=== PATIENT | male | born 2000 | race Two or more races ===

== ENCOUNTER 2022-01-21 03:37 | Inpatient (IN) | payer MEDICAID ==
[~2022-01-21] VITALS: Ht 175.3 cm; Wt 97.8 kg
[2022-01-21 04:35] LABS: BASOPHILS % (AUTO) 0.5 % (0.0-2.0); EOSINOPHILS % (AUTO) 0.8 % (1.0-6.0); HEMATOCRIT 40.3 % (41-53); HEMOGLOBIN 13.7 g/dL (13.5-17.5); LYMPHOCYTES # (AUTO) 2.9 K/uL (1.0-4.8); LYMPHOCYTES % (AUTO) 25.9 % (22.0-44.0); MEAN CORPUSCULAR HEMOGLOBIN 29.9 pg (26.0-34.0); MEAN CORPUSCULAR VOLUME 88 fL (80-100); MONOCYTES # (AUTO) 0.8 K/uL (0.1-1.0); NEUTROPHILS # (AUTO) 7.3 K/uL (1.8-7.7); NEUTROPHILS % (AUTO) 65.8 % (40.0-70.0); PLATELET COUNT (AUTO) 254 K/uL (150-450); RED BLOOD CELL COUNT(AUTO) 4.59 MIL/uL (4.50-5.90)
[2022-01-21 04:42] LABS: AMPHET/METH SCREEN,URINE NEGATIVE (NEGATIVE); BARBITURATE SCREEN, URINE NEGATIVE (NEGATIVE); BENZODIAZEPINES SCREEN,URINE NEGATIVE (NEGATIVE); CANNABINOID SCREEN,URINE POSITIVE (NEGATIVE); COCAINE SCREEN,URINE NEGATIVE (NEGATIVE); METHADONE SCREEN, URINE NEGATIVE (NEGATIVE); OPIATE SCREEN,URINE NEGATIVE (NEGATIVE)
[2022-01-21 04:44] LABS: ANION GAP 6 mmol/L (8-16); CALCIUM, TOTAL 9.1 mg/dL (8.8-10.5); CARBON DIOXIDE 30 mmol/L (22-29); CHLORIDE 103 mmol/L (98-107); GLOMERULAR FILTR. RATE CALC > 60 mL/min (>60); GLUCOSE,RANDOM 135 mg/dL (70-110); POTASSIUM 3.9 mmol/L (3.5-5.1); SODIUM SERUM 139 mmol/L (136-145); UREA NITROGEN, BLOOD 16 mg/dL (7-18)
[2022-01-21 04:44] LABS: PHENCYCLIDINE SCREEN,URINE NEGATIVE (NEGATIVE)
[2022-01-21 04:50] LABS: ALANINE AMINOTRANSFERASE 38 U/L (12-78); ALBUMIN 3.8 g/dL (3.4-5.0); ALKALINE PHOSPHATASE 87 U/L (46-116); ASPARTATE AMINOTRANSFERASE 11 U/L (15-37); BILIRUBIN,TOTAL 0.4 mg/dL (0.1-1.0); TOTAL PROTEIN, SERUM 7.7 g/dL (6.4-8.2)
[2022-01-21 05:40] LABS: COVID AG,FIA SOURCE NASAL SWAB
[2022-01-21 07:14] LABS: APPEARANCE,URINE TURBID (CLEAR); BILIRUBIN,URINE NEGATIVE (NEGATIVE); GLUCOSE, URINE (UA) NEGATIVE (NEGATIVE); KETONES,URINE NEGATIVE (NEGATIVE); LEUKOCYTE ESTERASE ,URINE SMALL (NEGATIVE); NITRATE,URINE NEGATIVE (NEGATIVE); OCCULT BLOOD,URINE NEGATIVE (NEGATIVE); PROTEIN,URINE TRACE mg/dL (NEGATIVE); SPECIFIC GRAVITIY, URINE 1.032 (1.003-1.030)
[2022-01-21 07:57] LABS: AMORPHOUS SEDIMENT,UR Moderate /LPF (None Seen); BACTERIA,URINE None Seen /HPF (None Seen); RBC,URINE None Seen /HPF (0-2); SQUAMOUS EPITHELIAL CELL,UR Few /LPF (None Seen); WBC,URINE 0-2 /HPF (0-5)
[2022-01-21 09:42] VITALS: BP 136/87
[2022-01-21] MEDS ORDERED: NICOTINE 14 MG/24 HOUR PATCH TD PRN (14:45)
[2022-01-21] MEDS ORDERED: MAG HYDROX/AL HYDROX/SIMETH ES 30 ML SUSPENSION UDCUP PO PRN (14:45)
[2022-01-21] MEDS ORDERED: ONDANSETRON HCL 4 MG TABLET PO PRN (14:45)
[2022-01-21] MEDS ORDERED: GuaiFENesin/D-METHORPHAN [SUGAR-FREE] 200-20MG/10 ML SYRUP UDCUP PO PRN (14:45)
[2022-01-21] MEDS ORDERED: CloNIDine HCL 0.1 MG TABLET PO PRN (14:45)
[2022-01-21] MEDS ORDERED: ALBUTEROL SULFATE HFA 90 MCG/PUFF 8 GM INHALER IH PRN (14:45)
[2022-01-21] MEDS ORDERED: PETROLATUM,WHITE 28 GM JELLY TP PRN (14:45)
[2022-01-21] MEDS ORDERED: ACETAMINOPHEN 325 MG TABLET PO PRN (14:45)
[2022-01-21] MEDS ORDERED: MAGNESIUM HYDROXIDE SUSPENSION 30 ML UDCUP PO PRN (14:45)
[2022-01-21] MEDS ORDERED: DOCUSATE SODIUM 100 MG CAPSULE PO PRN (14:45)
[2022-01-21] MEDS ORDERED: LOPERAMIDE HCL 2 MG CAPSULE PO PRN (14:45)
[2022-01-21] MEDS ORDERED: IBUPROFEN 400 MG TABLET PO PRN (14:45)
[2022-01-21] MEDS: SERTRALINE HCL 50 MG TABLET PO SCH (16:49)
[2022-01-22 08:11] VITALS: BP 145/88
[2022-01-22] MEDS: SERTRALINE HCL 50 MG TABLET PO SCH ×3 (08:48→12:38)
[2022-01-22 09:38] LABS: CHOL/HDL RATIO 3.7 (4.2-7.3)
[2022-01-22 09:46] LABS: HEMOGLOBIN A1C 5.6 % (3.8-5.6)
[2022-01-22 16:04] VITALS: BP 121/71
[2022-01-22] MEDS: ZOLPIDEM TARTRATE 10 MG TABLET PO PRN (21:16)
[2022-01-22] MEDS: LORazepam 2 MG TABLET PO PRN (23:28)
[2022-01-22] MEDS: HALOPERIDOL 5 MG TABLET PO PRN (23:28)
[2022-01-23 08:00] VITALS: BP 126/98
[2022-01-23] MEDS: SERTRALINE HCL 50 MG TABLET PO SCH ×2 (09:00→10:04)
[2022-01-23 16:22] VITALS: BP 106/63
[2022-01-23] MEDS: ZOLPIDEM TARTRATE 10 MG TABLET PO PRN (21:08)
[2022-01-23] MEDS: LORazepam 2 MG TABLET PO PRN (22:53)
[2022-01-24 08:00] VITALS: BP 116/83
[2022-01-24] MEDS: SERTRALINE HCL 50 MG TABLET PO SCH (08:54)
[2022-01-24] MEDS: LORazepam 2 MG TABLET PO PRN ×2 (14:27→20:30)
[2022-01-24] MEDS: HALOPERIDOL 5 MG TABLET PO PRN (14:28)
[2022-01-24 16:00] VITALS: BP 147/89
[2022-01-24] MEDS: ZOLPIDEM TARTRATE 10 MG TABLET PO PRN (21:30)
[2022-01-24] MEDS ORDERED: LORazepam 2 MG/ML VIAL ONE (22:40)
[2022-01-24] MEDS ORDERED: HALOPERIDOL LACTATE 5 MG/ML VIAL ONE (22:40)
[2022-01-24] MEDS ORDERED: DiphenhydrAMINE HCL 50 MG/ML VIAL ONE (22:40)
[2022-01-24] MEDS ORDERED: HALOPERIDOL LACTATE 5 MG/ML VIAL IM ONE (22:45)
[2022-01-24] MEDS ORDERED: LORazepam 2 MG/ML VIAL IM ONE (22:45)
[2022-01-24] MEDS ORDERED: DiphenhydrAMINE HCL 50 MG/ML VIAL IM ONE (22:45)
[2022-01-25 08:16] VITALS: BP 101/55
[2022-01-25] MEDS: SERTRALINE HCL 50 MG TABLET PO SCH (09:00)
[2022-01-25] MEDS: HALOPERIDOL 5 MG TABLET PO PRN ×2 (13:26→20:19)
[2022-01-25] MEDS: LORazepam 2 MG TABLET PO PRN ×2 (13:26→20:19)
[2022-01-26] MEDS: SERTRALINE HCL 50 MG TABLET PO SCH (08:12)
[2022-01-26] MEDS: HALOPERIDOL 5 MG TABLET PO PRN ×3 (08:12→20:19)
[2022-01-26] MEDS: LORazepam 2 MG TABLET PO PRN ×3 (08:12→20:59)
[2022-01-26 08:19] VITALS: BP 138/89
[2022-01-26 16:22] VITALS: BP 123/76
[2022-01-26] MEDS: ZOLPIDEM TARTRATE 10 MG TABLET PO PRN (20:19)
[2022-01-27] MEDS: LORazepam 2 MG TABLET PO PRN ×3 (01:05→15:42)
[2022-01-27] MEDS: HALOPERIDOL 5 MG TABLET PO PRN ×4 (01:06→20:45)
[2022-01-27 06:16] LABS: COVID AG,FIA SOURCE NASAL SWAB
[2022-01-27 06:22] LABS: BASOPHILS % (AUTO) 0.1 % (0.0-2.0); EOSINOPHILS % (AUTO) 1.3 % (1.0-6.0); HEMOGLOBIN 14.9 g/dL (13.5-17.5); LYMPHOCYTES # (AUTO) 3.5 K/uL (1.0-4.8); LYMPHOCYTES % (AUTO) 34.9 % (22.0-44.0); MEAN CORPUSCULAR HEMOGLOBIN 29.7 pg (26.0-34.0); MEAN CORPUSCULAR HGB CONC 33.8 G/dL (31.0-37.0); MEAN CORPUSCULAR VOLUME 88 fL (80-100); MONOCYTES # (AUTO) 0.6 K/uL (0.1-1.0); MONOCYTES % (AUTO) 6.2 % (2.0-9.0); NEUTROPHILS # (AUTO) 5.7 K/uL (1.8-7.7); NEUTROPHILS % (AUTO) 57.5 % (40.0-70.0); PLATELET COUNT (AUTO) 231 K/uL (150-450); RED BLOOD CELL COUNT(AUTO) 5.01 MIL/uL (4.50-5.90); RED CELL DISTRIBUTION WIDTH 12.9 % (11.5-14.5)
[2022-01-27 08:21] VITALS: BP 104/56
[2022-01-27] MEDS: SERTRALINE HCL 50 MG TABLET PO SCH (08:53)
[2022-01-27 16:18] VITALS: BP 130/80
[2022-01-27] MEDS: ZOLPIDEM TARTRATE 10 MG TABLET PO PRN (20:12)
[2022-01-28] MEDS: HALOPERIDOL 5 MG TABLET PO PRN ×2 (08:06→18:45)
[2022-01-28] MEDS: SERTRALINE HCL 50 MG TABLET PO SCH (08:06)
[2022-01-28 08:20] VITALS: BP 102/63
[2022-01-28] MEDS: LORazepam 2 MG TABLET PO PRN ×2 (10:00→18:45)
[2022-01-28 16:09] VITALS: BP 123/72
[2022-01-28] MEDS: ZOLPIDEM TARTRATE 10 MG TABLET PO PRN (20:30)
[2022-01-29 08:00] VITALS: BP 108/54
[2022-01-29] MEDS: SERTRALINE HCL 50 MG TABLET PO SCH (09:09)
[2022-01-29] MEDS: LORazepam 2 MG TABLET PO PRN (09:09)
[2022-01-29] MEDS: HALOPERIDOL 5 MG TABLET PO PRN (09:09)
[2022-01-29] MEDS ORDERED: SERT-439 PO (12:54)
== END 2022-01-29 13:00 | disposition home or self-care (01) | DRG 751 ==
LOC: EMS 03:38 → 3EC 07:00
PROVIDERS: ADMIT Psychiatry & Neurology Child & Adolescent Psychiatry; ATTEND Psychiatry & Neurology Child & Adolescent Psychiatry
DX: F33.2 Major depressive disorder, recurrent severe without psychotic features (principal); R45.851 Suicidal ideations; F10.10 Alcohol abuse, uncomplicated; Z20.822 Contact with and (suspected) exposure to COVID-19; F19.10 Other psychoactive substance abuse, uncomplicated; D72.829 Elevated white blood cell count, unspecified; R73.9 Hyperglycemia, unspecified; F12.10 Cannabis abuse, uncomplicated; Z59.00 Homelessness unspecified; Z71.41 Alcohol abuse counseling and surveillance of alcoholic
CPT/HCPCS: 80053; 80061; 81001; 83036; 85025; 87081; 99285; G0480; J1200; J1630; J2060

== ENCOUNTER 2022-01-30 02:35 | Emergency (ER) | payer MEDICAID, OTHER ==
[~2022-01-30] VITALS: Ht 177.8 cm; Wt 90.9 kg
[~2022-01-30 02:35] MED LIST: SERT-439 PO
[2022-01-30 04:00] VITALS: BP 114/74
== END 2022-01-30 04:01 | disposition home or self-care (01) ==
LOC: EMS 02:43
DX: R07.9 Chest pain, unspecified (principal); F12.90 Cannabis use, unspecified, uncomplicated; F15.90 Other stimulant use, unspecified, uncomplicated
CPT/HCPCS: 71045; 93005; 99283

== ENCOUNTER 2022-01-30 07:34 | Inpatient (IN) | payer MEDICAID ==
[~2022-01-30] VITALS: Ht 182.9 cm; Wt 98.0 kg
[2022-01-30 08:16] LABS: BASOPHILS % (AUTO) 0.7 % (0.0-2.0); EOSINOPHILS % (AUTO) 0.7 % (1.0-6.0); HEMATOCRIT 42.3 % (41-53); HEMOGLOBIN 14.4 g/dL (13.5-17.5); LYMPHOCYTES # (AUTO) 3.8 K/uL (1.0-4.8); LYMPHOCYTES % (AUTO) 30.7 % (22.0-44.0); MEAN CORPUSCULAR HEMOGLOBIN 29.9 pg (26.0-34.0); MEAN CORPUSCULAR VOLUME 88 fL (80-100); MONOCYTES # (AUTO) 0.9 K/uL (0.1-1.0); MONOCYTES % (AUTO) 7.6 % (2.0-9.0); NEUTROPHILS # (AUTO) 7.5 K/uL (1.8-7.7); NEUTROPHILS % (AUTO) 60.3 % (40.0-70.0); PLATELET COUNT (AUTO) 259 K/uL (150-450); RED BLOOD CELL COUNT(AUTO) 4.81 MIL/uL (4.50-5.90); RED CELL DISTRIBUTION WIDTH 13.1 % (11.5-14.5)
[2022-01-30 08:22] LABS: AMPHET/METH SCREEN,URINE NEGATIVE (NEGATIVE); BARBITURATE SCREEN, URINE NEGATIVE (NEGATIVE); BENZODIAZEPINES SCREEN,URINE NEGATIVE (NEGATIVE); CANNABINOID SCREEN,URINE POSITIVE (NEGATIVE); COCAINE SCREEN,URINE NEGATIVE (NEGATIVE); METHADONE SCREEN, URINE NEGATIVE (NEGATIVE); OPIATE SCREEN,URINE NEGATIVE (NEGATIVE)
[2022-01-30 08:24] LABS: ANION GAP 6 mmol/L (8-16); CALCIUM, TOTAL 9.3 mg/dL (8.8-10.5); CARBON DIOXIDE 27 mmol/L (22-29); CHLORIDE 103 mmol/L (98-107); CREATININE 0.78 mg/dL (0.60-1.30); GLOMERULAR FILTR. RATE CALC > 60 mL/min (>60); GLUCOSE,RANDOM 103 mg/dL (70-110); PHENCYCLIDINE SCREEN,URINE NEGATIVE (NEGATIVE); POTASSIUM 3.9 mmol/L (3.5-5.1); SODIUM SERUM 136 mmol/L (136-145); UREA NITROGEN, BLOOD 12 mg/dL (7-18)
[2022-01-30 08:30] LABS: ALANINE AMINOTRANSFERASE 41 U/L (12-78); ALBUMIN 4.1 g/dL (3.4-5.0); ALKALINE PHOSPHATASE 106 U/L (46-116); ASPARTATE AMINOTRANSFERASE 13 U/L (15-37); BILIRUBIN,TOTAL 0.3 mg/dL (0.1-1.0); TOTAL PROTEIN, SERUM 7.6 g/dL (6.4-8.2)
[2022-01-30 12:18] LABS: APPEARANCE,URINE CLEAR (CLEAR); BILIRUBIN,URINE NEGATIVE (NEGATIVE); GLUCOSE, URINE (UA) NEGATIVE (NEGATIVE); KETONES,URINE NEGATIVE (NEGATIVE); LEUKOCYTE ESTERASE ,URINE TRACE (NEGATIVE); NITRATE,URINE NEGATIVE (NEGATIVE); OCCULT BLOOD,URINE NEGATIVE (NEGATIVE); PROTEIN,URINE TRACE mg/dL (NEGATIVE); SPECIFIC GRAVITIY, URINE 1.027 (1.003-1.030); UROBILINOGEN,URINE <=1.0 mg/dL (<=1.0)
[2022-01-30 12:22] LABS: BACTERIA,URINE None Seen /HPF (None Seen); RBC,URINE None Seen /HPF (0-2); WBC,URINE 0-2 /HPF (0-5)
[2022-01-30 12:40] LABS: COVID AG,FIA SOURCE NASAL SWAB
[2022-01-30 15:44] VITALS: BP 137/72
[2022-01-30 16:40] VITALS: BP 127/70
[2022-01-30] MEDS: ZOLPIDEM TARTRATE 10 MG TABLET PO PRN (20:49)
[2022-01-30] MEDS: LORazepam 2 MG TABLET PO PRN (23:46)
[2022-01-30] MEDS: OLANZapine 5 MG TABLET PO PRN (23:46)
[2022-01-31] MEDS ORDERED: DOCUSATE SODIUM 100 MG CAPSULE PO PRN (07:45)
[2022-01-31] MEDS ORDERED: PETROLATUM,WHITE 28 GM JELLY TP PRN (07:45)
[2022-01-31] MEDS ORDERED: ACETAMINOPHEN 325 MG TABLET PO PRN (07:45)
[2022-01-31] MEDS ORDERED: NICOTINE 14 MG/24 HOUR PATCH TD PRN (07:45)
[2022-01-31] MEDS ORDERED: MAGNESIUM HYDROXIDE SUSPENSION 30 ML UDCUP PO PRN (07:45)
[2022-01-31] MEDS ORDERED: GuaiFENesin/D-METHORPHAN [SUGAR-FREE] 200-20MG/10 ML SYRUP UDCUP PO PRN (07:45)
[2022-01-31] MEDS ORDERED: MAG HYDROX/AL HYDROX/SIMETH ES 30 ML SUSPENSION UDCUP PO PRN (07:45)
[2022-01-31] MEDS ORDERED: IBUPROFEN 400 MG TABLET PO PRN (07:45)
[2022-01-31] MEDS ORDERED: ONDANSETRON HCL 4 MG TABLET PO PRN (07:45)
[2022-01-31] MEDS ORDERED: LOPERAMIDE HCL 2 MG CAPSULE PO PRN (07:45)
[2022-01-31] MEDS ORDERED: CloNIDine HCL 0.1 MG TABLET PO PRN (07:45)
[2022-01-31] MEDS ORDERED: ALBUTEROL SULFATE HFA 90 MCG/PUFF 8 GM INHALER IH PRN (07:45)
[2022-01-31 08:25] VITALS: BP 125/76
[2022-01-31 16:07] VITALS: BP 122/63
[2022-01-31] MEDS: LORazepam 2 MG TABLET PO PRN (17:44)
[2022-01-31] MEDS: OLANZapine 5 MG TABLET PO PRN (17:44)
[2022-01-31] MEDS: ZOLPIDEM TARTRATE 10 MG TABLET PO PRN (20:28)
[2022-02-01 09:43] VITALS: BP 118/68
== END 2022-02-01 18:00 | disposition left against medical advice (07) | DRG 751 ==
LOC: EMS 07:35 → B3A 13:10
PROVIDERS: ADMIT Psychiatry & Neurology Child & Adolescent Psychiatry; ATTEND Psychiatry & Neurology Child & Adolescent Psychiatry
DX: F33.2 Major depressive disorder, recurrent severe without psychotic features (principal); R45.851 Suicidal ideations; D72.829 Elevated white blood cell count, unspecified; Z20.822 Contact with and (suspected) exposure to COVID-19; F41.9 Anxiety disorder, unspecified; F10.10 Alcohol abuse, uncomplicated; Z71.41 Alcohol abuse counseling and surveillance of alcoholic; Z59.00 Homelessness unspecified; Z79.899 Other long term (current) drug therapy
CPT/HCPCS: 80053; 81001; 85025; 87081; 99285; G0480

== ENCOUNTER 2022-02-02 04:02 | Inpatient (IN) | payer MEDICAID ==
[~2022-02-02] VITALS: Ht 180.3 cm; Wt 95.6 kg
[2022-02-02 05:29] LABS: BASOPHILS % (AUTO) 0.4 % (0.0-2.0); EOSINOPHILS % (AUTO) 0.5 % (1.0-6.0); HEMATOCRIT 41.1 % (41-53); LYMPHOCYTES # (AUTO) 3.1 K/uL (1.0-4.8); LYMPHOCYTES % (AUTO) 25.8 % (22.0-44.0); MEAN CORPUSCULAR HEMOGLOBIN 29.4 pg (26.0-34.0); MEAN CORPUSCULAR VOLUME 86 fL (80-100); MONOCYTES # (AUTO) 0.7 K/uL (0.1-1.0); MONOCYTES % (AUTO) 5.4 % (2.0-9.0); NEUTROPHILS # (AUTO) 8.2 K/uL (1.8-7.7); NEUTROPHILS % (AUTO) 67.9 % (40.0-70.0); PLATELET COUNT (AUTO) 246 K/uL (150-450); RED BLOOD CELL COUNT(AUTO) 4.75 MIL/uL (4.50-5.90); RED CELL DISTRIBUTION WIDTH 12.8 % (11.5-14.5)
[2022-02-02 05:37] LABS: ANION GAP 7 mmol/L (8-16); CALCIUM, TOTAL 9.2 mg/dL (8.8-10.5); CARBON DIOXIDE 28 mmol/L (22-29); CHLORIDE 103 mmol/L (98-107); CREATININE 1.04 mg/dL (0.60-1.30); GLOMERULAR FILTR. RATE CALC > 60 mL/min (>60); GLUCOSE,RANDOM 102 mg/dL (70-110); POTASSIUM 3.5 mmol/L (3.5-5.1); SODIUM SERUM 138 mmol/L (136-145); UREA NITROGEN, BLOOD 9 mg/dL (7-18)
[2022-02-02 05:43] LABS: ALANINE AMINOTRANSFERASE 49 U/L (12-78); ALBUMIN 3.9 g/dL (3.4-5.0); ALKALINE PHOSPHATASE 93 U/L (46-116); ASPARTATE AMINOTRANSFERASE 15 U/L (15-37); BILIRUBIN,TOTAL 0.4 mg/dL (0.1-1.0); TOTAL PROTEIN, SERUM 7.2 g/dL (6.4-8.2)
[2022-02-02 07:04] LABS: COVID AG,FIA SOURCE NASAL SWAB
[2022-02-02 16:00] VITALS: BP 148/76
[2022-02-02] MEDS: LORazepam 2 MG TABLET PO PRN (20:10)
[2022-02-02] MEDS: HALOPERIDOL 5 MG TABLET PO PRN (20:10)
[2022-02-02] MEDS: ZOLPIDEM TARTRATE 10 MG TABLET PO PRN (20:37)
[2022-02-03] MEDS ORDERED: PETROLATUM,WHITE 28 GM JELLY TP PRN (06:30)
[2022-02-03] MEDS ORDERED: MAG HYDROX/AL HYDROX/SIMETH ES 30 ML SUSPENSION UDCUP PO PRN (06:30)
[2022-02-03] MEDS ORDERED: MAGNESIUM HYDROXIDE SUSPENSION 30 ML UDCUP PO PRN (06:30)
[2022-02-03] MEDS ORDERED: GuaiFENesin/D-METHORPHAN [SUGAR-FREE] 200-20MG/10 ML SYRUP UDCUP PO PRN (06:30)
[2022-02-03] MEDS ORDERED: LOPERAMIDE HCL 2 MG CAPSULE PO PRN (06:30)
[2022-02-03] MEDS ORDERED: DOCUSATE SODIUM 100 MG CAPSULE PO PRN (06:30)
[2022-02-03] MEDS ORDERED: NICOTINE 14 MG/24 HOUR PATCH TD PRN (06:30)
[2022-02-03] MEDS ORDERED: CloNIDine HCL 0.1 MG TABLET PO PRN (06:30)
[2022-02-03] MEDS ORDERED: ALBUTEROL SULFATE HFA 90 MCG/PUFF 8 GM INHALER IH PRN (06:30)
[2022-02-03] MEDS ORDERED: ONDANSETRON HCL 4 MG TABLET PO PRN (06:30)
[2022-02-03 08:02] VITALS: BP 124/76
[2022-02-03] MEDS: SERTRALINE HCL 50 MG TABLET PO SCH (13:29)
[2022-02-03 16:14] VITALS: BP 121/78
[2022-02-03] MEDS: HALOPERIDOL 5 MG TABLET PO PRN (21:01)
[2022-02-03] MEDS: LORazepam 2 MG TABLET PO PRN (21:01)
[2022-02-03] MEDS: ZOLPIDEM TARTRATE 10 MG TABLET PO PRN (22:27)
[2022-02-03 23:22] LABS: APPEARANCE,URINE CLEAR (CLEAR); BILIRUBIN,URINE NEGATIVE (NEGATIVE); GLUCOSE, URINE (UA) TRACE mg/dL (NEGATIVE); KETONES,URINE NEGATIVE (NEGATIVE); LEUKOCYTE ESTERASE ,URINE SMALL (NEGATIVE); NITRATE,URINE NEGATIVE (NEGATIVE); OCCULT BLOOD,URINE NEGATIVE (NEGATIVE); PH,URINE 5.5 (5.0-8.0); PROTEIN,URINE TRACE mg/dL (NEGATIVE); SPECIFIC GRAVITIY, URINE 1.027 (1.003-1.030); UROBILINOGEN,URINE <=1.0 mg/dL (<=1.0)
[2022-02-03 23:26] LABS: AMPHET/METH SCREEN,URINE NEGATIVE (NEGATIVE); BARBITURATE SCREEN, URINE NEGATIVE (NEGATIVE); BENZODIAZEPINES SCREEN,URINE NEGATIVE (NEGATIVE); CANNABINOID SCREEN,URINE POSITIVE (NEGATIVE); COCAINE SCREEN,URINE NEGATIVE (NEGATIVE); METHADONE SCREEN, URINE NEGATIVE (NEGATIVE); OPIATE SCREEN,URINE NEGATIVE (NEGATIVE)
[2022-02-03 23:27] LABS: PHENCYCLIDINE SCREEN,URINE NEGATIVE (NEGATIVE)
[2022-02-03 23:35] LABS: BACTERIA,URINE None Seen /HPF (None Seen); RBC,URINE None Seen /HPF (0-2)
[2022-02-04 08:01] VITALS: BP 103/59
[2022-02-04] MEDS: SERTRALINE HCL 50 MG TABLET PO SCH (10:06)
[2022-02-04] MEDS: IBUPROFEN 400 MG TABLET PO PRN (11:20)
[2022-02-04 16:02] VITALS: BP 120/71
[2022-02-04] MEDS: HALOPERIDOL 5 MG TABLET PO PRN (18:06)
[2022-02-04] MEDS: LORazepam 2 MG TABLET PO PRN (18:06)
[2022-02-04] MEDS: ZOLPIDEM TARTRATE 10 MG TABLET PO PRN (20:01)
[2022-02-04 20:15] VITALS: BP 135/70
[2022-02-05 08:01] VITALS: BP 142/91
[2022-02-05] MEDS: SERTRALINE HCL 50 MG TABLET PO SCH (09:42)
[2022-02-05] MEDS: HALOPERIDOL 5 MG TABLET PO PRN (09:42)
[2022-02-05] MEDS: LORazepam 2 MG TABLET PO PRN (09:42)
[2022-02-05] MEDS: IBUPROFEN 400 MG TABLET PO PRN ×2 (09:46→22:24)
[2022-02-05] MEDS: ACETAMINOPHEN 325 MG TABLET PO PRN (16:10)
[2022-02-05 20:04] VITALS: BP 135/80
[2022-02-05] MEDS: ZOLPIDEM TARTRATE 10 MG TABLET PO PRN (20:18)
[2022-02-05 22:25] VITALS: BP 126/68
[2022-02-06] MEDS: LORazepam 2 MG TABLET PO PRN ×2 (00:03→20:57)
[2022-02-06] MEDS: HALOPERIDOL 5 MG TABLET PO PRN ×2 (00:03→20:57)
[2022-02-06 08:00] VITALS: BP 97/53
[2022-02-06] MEDS: SERTRALINE HCL 50 MG TABLET PO SCH (08:53)
[2022-02-06 12:59] VITALS: BP 110/60
[2022-02-06] MEDS: IBUPROFEN 400 MG TABLET PO PRN ×2 (12:59→23:37)
[2022-02-06 16:57] VITALS: BP 147/77
[2022-02-06] MEDS: ZOLPIDEM TARTRATE 10 MG TABLET PO PRN (21:33)
[2022-02-07] MEDS: SERTRALINE HCL 50 MG TABLET PO SCH (08:25)
[2022-02-07] MEDS: HALOPERIDOL 5 MG TABLET PO PRN ×2 (08:51→18:55)
[2022-02-07] MEDS: LORazepam 2 MG TABLET PO PRN ×2 (08:51→18:55)
[2022-02-07] MEDS: IBUPROFEN 400 MG TABLET PO PRN (13:38)
[2022-02-07 13:39] VITALS: BP 120/76
[2022-02-07 16:10] VITALS: BP 122/79
[2022-02-07] MEDS: ZOLPIDEM TARTRATE 10 MG TABLET PO PRN (20:27)
[2022-02-08 08:03] VITALS: BP 129/81
[2022-02-08] MEDS: HALOPERIDOL 5 MG TABLET PO PRN ×3 (08:34→18:56)
[2022-02-08] MEDS: LORazepam 2 MG TABLET PO PRN ×3 (08:34→18:57)
[2022-02-08] MEDS: SERTRALINE HCL 50 MG TABLET PO SCH (08:34)
[2022-02-08 08:47] LABS: COVID AG,FIA SOURCE NASAL SWAB
[2022-02-08] MEDS: ACETAMINOPHEN 325 MG TABLET PO PRN (08:52)
[2022-02-08 16:03] VITALS: BP 121/78
[2022-02-08] MEDS: ZOLPIDEM TARTRATE 10 MG TABLET PO PRN (20:26)
[2022-02-09] MEDS: SERTRALINE HCL 50 MG TABLET PO SCH ×2 (07:49→09:00)
[2022-02-09 08:04] VITALS: BP 107/70
[2022-02-09] MEDS: LORazepam 2 MG TABLET PO PRN ×2 (10:57→16:04)
[2022-02-09] MEDS: HALOPERIDOL 5 MG TABLET PO PRN ×3 (10:57→20:02)
[2022-02-09 16:11] VITALS: BP 138/72
[2022-02-09] MEDS: ZOLPIDEM TARTRATE 10 MG TABLET PO PRN (20:02)
[2022-02-10] MEDS: SERTRALINE HCL 50 MG TABLET PO SCH (07:47)
[2022-02-10 08:08] VITALS: BP 98/57
[2022-02-10] MEDS ORDERED: SERT-439 PO (11:41)
== END 2022-02-10 14:40 | disposition home or self-care (01) | DRG 751 ==
LOC: EMS 04:02 → 3EC 07:05 → UNDODISIN 02-05 17:30
PROVIDERS: ADMIT Psychiatry & Neurology Child & Adolescent Psychiatry; ATTEND Psychiatry & Neurology Child & Adolescent Psychiatry
DX: F33.2 Major depressive disorder, recurrent severe without psychotic features (principal); R45.851 Suicidal ideations; F12.10 Cannabis abuse, uncomplicated; Z20.822 Contact with and (suspected) exposure to COVID-19; D72.829 Elevated white blood cell count, unspecified; F10.10 Alcohol abuse, uncomplicated; F41.9 Anxiety disorder, unspecified; Z71.41 Alcohol abuse counseling and surveillance of alcoholic; Z71.51 Drug abuse counseling and surveillance of drug abuser
CPT/HCPCS: 80053; 81001; 85025; 87081; 99285; G0480

== ENCOUNTER 2023-08-23 22:48 | Emergency (ER) | payer MEDICAID, OTHER ==
[~2023-08-23] VITALS: Ht 177.8 cm; Wt 77.3 kg
[2023-08-23 23:04] VITALS: BP 133/86; PULSE 110; RESP 16; TEMP 98.6
== END 2023-08-24 02:39 | disposition left against medical advice (07) ==
LOC: EMS 22:52
DX: R53.1 Weakness (principal); R42 Dizziness and giddiness; Z53.21 Procedure and treatment not carried out due to patient leaving prior to being seen by health care provider
CPT/HCPCS: 99281; Z7502